=== PATIENT | female | born 1995 | race Caucasian/White ===

== ENCOUNTER 2021-07-11 17:55 | Emergency (ER) | payer MEDICAID ==
[2021-07-11 18:28] VITALS: BP 107/57; PULSE 70
--- NOTE | 2021-07-11 19:28 | EDM.PDOC ---
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 The symptoms started after coitus. The patient reports that she was changing a pad about every hour. She reports that the bleeding was dark red blood. The bleeding has tapered off some but continues. The patient is -0-0-1 and is 13 weeks by dates. She gets her care from Maria Elena Ontiveros. Her blood type is O+. She does report that today when she was having the bleeding she had some episodes of dizziness, lightheadedness, and diaphoresis associated with some nausea. 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: - Past Surgical History Head Surgeries/Procedures: Reports: None Dermatological Surgical History: Reports: None Social & Family History - Tobacco Use Tobacco Use Status *Q: Never Tobacco User Second Hand Smoke Exposure: No - Caffeine Use Caffeine Use: Reports: None - Recreational Drug Use Recreational Drug Use: No ED ROS GENERAL - Review of Systems Review Of Systems: See Below Constitutional: Reports: No Symptoms HEENT: Reports: No Symptoms Respiratory: Reports: No Symptoms Cardiovascular: Reports: No Symptoms Endocrine: Reports: No Symptoms GI/Abdominal: Reports: Abdominal Pain (Intermittent bilateral lower abdominal pain) : Reports: No Symptoms Musculoskeletal: Reports: No Symptoms Skin: Reports: Diaphoresis Neurological: Reports: Dizziness (Lightheadedness) Psychiatric: Reports: Anxiety Hematologic/Lymphatic: Reports: No Symptoms Immunologic: Reports: No Symptoms ED EXAM - Physical Exam Exam: See Below Exam Limited By: No Limitations General Appearance: Alert, No Apparent Distress, Anxious Respiratory/Chest: No Respiratory Distress, Lungs Clear, Normal Breath Sounds Cardiovascular: Normal Peripheral Pulses, Regular Rate, Rhythm, No Murmur GI/Abdominal Exam: Normal Bowel Sounds, Soft, Non-Tender, Other (Fundus is senior care between the pelvis and the umbilicus) Back Exam: Normal Inspection Extremities: Normal Inspection Neurological: Alert, Oriented, Normal Cognition, No Motor/Sensory Deficits Psychiatric: Normal Affect, Normal Mood Skin Exam: Warm, Dry ED ULTRASOUND - Pelvic Indication: vaginal bleeding Exam type: focused transabdominal pelvic US Findings: IUP Impression: IUP w/heartbeat, other (Posterior placenta with a small subchorionic hemorrhage. It does not appear that the placenta overrides the cervix.) Images archived: Yes Pelvis US Text: Single live intrauterine with a FHR of 156 bpm. BPD 14w3d Course - Vital Signs Last Recorded V/S: Last Vital Signs Temp 36.6 C 07/11/21 18:28 Pulse 70 07/11/21 18:28 Resp 14 07/11/21 18:28 BP 107/57 L 07/11/21 18:28 Pulse Ox 97 07/11/21 18:28 - Orders/Labs/Meds Orders: Active Orders 24 hr Category Date Time Status HCG QUANTITATIVE [CHEM] Stat Lab 07/11/21 19:04 Received Labs: Laboratory Tests 07/11/21 07/11/21 Range/Units 18:53 19:04 WBC 8.4 (4.5-11.0) K/uL RBC 3.92 (3.30-5.50) M/uL Hgb 12.3 (12.0-15.0) g/dL Hct 36.1 (36.0-48.0) % MCV 92 (80-98) fL MCH 31 (27-31) pg MCHC 34 (32-36) % Plt Count 187 (150-400) K/uL Urine Color Red A (YELLOW) Urine Appearance Slightly cloudy A (CLEAR) Urine pH 6.0 (5.0-8.0) Ur Specific [place] 1.015 (1.008-1.030) Urine Protein >=300 H (NEGATIVE) mg/dL Urine Glucose (UA) Negative (NEGATIVE) mg/dL Urine Ketones Negative (NEGATIVE) mg/dL Urine Occult Blood Large H (NEGATIVE) Urine Nitrite Negative (NEGATIVE) Urine Bilirubin Negative (NEGATIVE) Urine Urobilinogen 0.2 (0.2-1.0) EU/dL Ur Leukocyte Esterase Negative (NEGATIVE) Urine RBC 10-20 H (0-5) Urine WBC 0-5 (0-5) Ur Epithelial Cells Few Amorphous Sediment Moderate Urine Bacteria Moderate Urine Mucus Not seen - Re-Assessments/Exams Free Text/Narrative Re-Assessment/Exam: 07/11/21 19:33 labs were reviewed showing a hemoglobin of 12.9. Patient is O+ so she does not require RhoGam. Ultrasound done at the bedside shows a subchorionic hemorrhage and a posterior placenta. It does not appear that the placenta overrides the cervix. heart rate was 156 bpm and biparietal diameter calculates to 14 weeks 3 days which is consistent with her dates. At this time, the patient is reassured. Indications to return to the ED were discussed. Patient should follow-up with OB care provider in 2 days for recheck of her beta-hCG quantitative. Departure - Departure Time of Disposition: 19:34 Disposition: Home, Self-Care 01 Clinical Impression: First-trimester bleeding - Discharge Information Instructions: Vaginal Bleeding During , First Trimester Referrals: Maria Elena Ontiveros CNM [Primary Care Provider] - Care Plan Goals: Follow-up with James Ontiveros in 2 days for recheck your beta-hCG quantitative. Return to the ED if you have more significant bleeding, increased pain, develop fever, or have any additional concerns. Sepsis Event Note (ED) - Evaluation Sepsis Screening Result: No Definite Risk - Focused Exam Vital Signs: Vital Signs Temp Pulse Resp BP Pulse Ox 07/11/21 18:28 36.6 C 70 14 107/57 L 97 07/11/21 18:26 36.6 C 70 14 107/57 L 97 - Problem List & Annotations (1) First-trimester bleeding SNOMED Code(s): 0228215931507596 Code(s): O20.9 - HEMORRHAGE IN EARLY , UNSPECIFIED Status: Acute Priority: Medium Current Visit: Yes - Problem List Review Problem List Initiated/Reviewed/Updated: Yes - My Orders Last 24 Hours: My Active Orders 07/11/21 19:04 HCG QUANTITATIVE [CHEM] Stat - Assessment/Plan Last 24 Hours: My Active Orders 07/11/21 19:04 HCG QUANTITATIVE [CHEM] Stat
== END 2021-07-11 19:41 | disposition home or self-care (01) ==
LOC: JP.ED 17:55
DX: O20.9 Hemorrhage in early pregnancy, unspecified (principal); Z3A.13 13 weeks gestation of pregnancy
CPT/HCPCS: 36415; 81001; 84702; 85027; 99284-25

== ENCOUNTER 2021-08-17 12:05 | Emergency (ER) | payer MEDICAID ==
--- NOTE | 2021-08-17 12:32 | EDM.PDOC ---
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 She is 19 weeks gestation and blood type O+. Was referred to the ER from the [facility]. Hgb on 08/03/21 was 11.5. Had an US in clinic yesterday that showed perigestational hemorrhage, no placenta previa or other pathology. FHT's present yesterday at 163/min. This is her 2nd . Onset: Today Onset Date: 08/17/21 Duration: Hour(s):, Constant Location: Reports: Pelvis (uterine) Quality: Reports: Other (no cramping reported) Severity: Moderate Improves with: Reports: None Worsens with: Reports: Other (unsure) Context: Reports: Other (See HPI) Associated Symptoms: Reports: Other (occasionally light-headed with standing). 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 Denies: Nausea : Reports: Other (vaginal bleeding) Musculoskeletal: Reports: No Symptoms Skin: Reports: No Symptoms ED EXAM - Physical Exam Exam: See Below Exam Limited By: No Limitations General Appearance: Alert, WD/WN, No Apparent Distress Eye Exam: Right Eye: Other, Bilateral Eye: Normal Inspection Ears: Normal External Exam, Normal Canal, Hearing Grossly Normal Nose: Normal Inspection, No Blood Throat/Mouth: Normal Inspection, Normal Lips, Normal Oropharynx, Normal Voice, No Airway Compromise Head: Atraumatic, Normocephalic Neck: Normal Inspection Respiratory/Chest: No Respiratory Distress, Lungs Clear, Normal Breath Sounds, No Accessory Muscle Use Cardiovascular: Regular Rate, Rhythm, No Edema Heart Tones: Present Heart Tones per Min: 156 Movement: Not Appreciated Extremities: Normal Inspection Neurological: Alert, Oriented, CN II-XII Intact, Normal Cognition, No Motor/Sensory Deficits Psychiatric: Normal Affect, Normal Mood Skin Exam: Warm, Dry, Intact, Normal Color, No Rash Course - Vital Signs Text/Narrative:: Discussed with Raquel Muñoz @ 1420h Last Recorded V/S: Last Vital Signs Temp 36.7 C 08/17/21 12:22 Pulse 76 08/17/21 12:22 Resp 16 08/17/21 12:22 BP 104/53 L 08/17/21 12:22 Pulse Ox 100 08/17/21 12:22 Orthostatic Blood Pressure [ 96/56 Standing] Orthostatic Blood Pressure [ 98/55 Sitting] Orthostatic Blood Pressure [ 109/58 Supine] - Orders/Labs/Meds Orders: Active Orders 24 hr Category Date Time Status Orthostatic Vital Signs [RC] ASDIRECTED Care 08/17/21 12:10 Active Labs: Laboratory Tests 08/17/21 Range/Units 12:46 Hgb 10.0 L D (12.0-15.0) g/dL Meds: Medications Discontinued Medications Generic Name Dose Route Start Last Admin Trade Name Gallitoq PRN Reason Stop Dose Admin Lactated Ringer's 1,000 mls @ 1,000 mls/hr 08/17/21 12:48 08/17/21 13:18 Ringers, Lactated IV 08/17/21 13:47 1,000 mls/hr BOLUS ONE Administration - Radiology Interpretation Free Text/Narrative:: OB ultrasound- Departure - Departure Time of Disposition: 15:00 Disposition: Home, Self-Care 01 Condition: Fair Clinical Impression: Vaginal bleeding during - Discharge Information *PRESCRIPTION DRUG MONITORING PROGRAM REVIEWED*: Not Applicable *COPY OF PRESCRIPTION DRUG MONITORING REPORT IN PATIENT RONEL: Not Applicable Referrals: Hannah Hicks MD [Primary Care Provider] - Forms: ED Department Discharge Sepsis Event Note (ED) - Focused Exam Vital Signs: Vital Signs Temp Pulse Resp BP Pulse Ox 08/17/21 12:22 36.7 C 76 16 104/53 L 100 - My Orders Last 24 Hours: My Active Orders 08/17/21 12:10 Orthostatic Vital Signs [RC] ASDIRECTED - Assessment/Plan Last 24 Hours: My Active Orders 08/17/21 12:10 Orthostatic Vital Signs [RC] ASDIRECTED
[2021-08-17] MEDS ORDERED: Lactated Ringers 1,000 ML IV ONE ×2 (12:48→14:46)
--- NOTE | 2021-08-17 14:21 | US ---
OB Ltd 1 or More Fetus CLINICAL HISTORY: Late first trimester bleeding FINDINGS: Real-time transabdominal images are obtained through the pelvis. There is a single viable intrauterine in cephalic position. heart rate is 146 bpm. Amniotic fluid index is 9.3. The placenta is anterior. Previously seen perigestational is again seen. The more right-sided fluid collection near the anterior margin of the placenta measures 5.7 x 3.2 x 4.1 cm. The more posterior left collection measures 3.1 x 0.8 x 2.7 cm. Cervical length is 3.4 cm. IMPRESSION: Live intrauterine .Perigestational bleed has increased in size since prior study
--- NOTE | 2021-08-17 14:56 | PCM.PN ---
- General Info Date of Service: 08/17/21 Functional Status: Reports: Pain Controlled - Review of Systems General: Reports: No Symptoms HEENT: Reports: No Symptoms Pulmonary: Reports: No Symptoms Cardiovascular: Reports: No Symptoms Gastrointestinal: Reports: No Symptoms Genitourinary: Reports: Other (vaginal bleeding in -second trimester) Musculoskeletal: Reports: No Symptoms Skin: Reports: No Symptoms Neurological: Reports: No Symptoms Psychiatric: Reports: No Symptoms - Patient Data Vitals - Most Recent: Last Vital Signs Temp 36.7 C 08/17/21 12:22 Pulse 76 08/17/21 12:22 Resp 16 08/17/21 12:22 BP 104/53 L 08/17/21 12:22 Pulse Ox 100 08/17/21 12:22 Orthostatic Blood Pressure [ 96/56 Standing] Orthostatic Blood Pressure [ 98/55 Sitting] Orthostatic Blood Pressure [ 109/58 Supine] Weight - Most Recent: 62.9 kg Lab Results Last 24 Hours: Laboratory Results - last 24 hr 08/17/21 Range/Units 12:46 Hgb 10.0 L D (12.0-15.0) g/dL Med Orders - Current: Current Medications Lactated Ringer's (Ringers, Lactated) 1,000 mls @ 1,000 mls/hr IV BOLUS ONE Stop: 08/17/21 15:45 Discontinued Medications Lactated Ringer's (Ringers, Lactated) 1,000 mls @ 1,000 mls/hr IV BOLUS ONE Stop: 08/17/21 13:47 Last Admin: 08/17/21 13:18 Dose: 1,000 mls/hr Documented by: - Patient Data Lab Results Last 24 hrs: Laboratory Results - last 24 hr 08/17/21 Range/Units 12:46 Hgb 10.0 L D (12.0-15.0) g/dL Result Diagrams: 08/17/21 12:46 Sepsis Event Note - Focused Exam Vital Signs: Vital Signs Temp Pulse Resp BP Pulse Ox 08/17/21 12:22 36.7 C 76 16 104/53 L 100 - Problem List & Annotations (1) Vaginal bleeding during SNOMED Code(s): 15122502526971339 Code(s): O46.90 - ANTEPARTUM HEMORRHAGE, UNSPECIFIED, UNSPECIFIED TRIMESTER Status: Acute Current Visit: Yes - Problem List Review Problem List Initiated/Reviewed/Updated: Yes - Plan Plan:: 08/17/2021 Was called as a consult on an OB patient. Gestational age of 19 0/7 has been being followed by [facility] in [place] for a large perigestational hemorrhage. Patient has been having heavier bleeding, clots and is now becoming symptomatic with dizziness at time. Did consult with Dr. Rivero whom was over at [facility] since her hgb dropped from 11.5 yesterday and to 10.0 today. He consulted with project control manager [employer] Dr. Stack and they decided she should come by ambulance and be a direct admit to labor and delivery over in [place]. Dr. Mendez notified and patient will be transferred. GIRMA Garcia
[2021-08-17 15:03] VITALS: BP 110/62; PULSE 72
== END 2021-08-17 15:28 | disposition home or self-care (01) ==
LOC: JP.ED 12:05
DX: O20.9 Hemorrhage in early pregnancy, unspecified (principal); Z3A.19 19 weeks gestation of pregnancy; Z20.822 Contact with and (suspected) exposure to COVID-19
CPT/HCPCS: 36415; 76815; 85018; 87635; 99285; J7120; U0002

== ENCOUNTER 2021-09-01 18:49 | Inpatient (IN) | payer MEDICAID ==
[2021-09-01] MEDS ORDERED: Sodium Chloride 0.9% 10 ML Syringe FLUSH PRN (19:11)
[2021-09-01] MEDS ORDERED: Lactated Ringers 1,000 ML IV ONE (19:30)
[2021-09-01] MEDS ORDERED: Tranexamic Acid 1,000 MG in Sodium Chloride 0.9% 50 ML IV ONE (19:43)
--- NOTE | 2021-09-01 21:03 | PCM.LDHP ---
L&D History of Present Illness - General Date of Service: 09/01/21 Admit Problem/Dx: Patient Status Order with Admit Dx/Problem 09/01/21 20:20 Patient Status [ADT] Routine Admission Diagnosis/Problem Admission Diagnosis/Problem Vaginal delivery Source of Information: Patient History Limitations: Reports: No Limitations - History of Present Illness Introduction:: 09/01/21 Patient came to ER entrance this evening with complaints of bad cramping. Upon arrival at 1915 she began bleeding a large amount of bright red blood and her pain and cramping intensified. She has had vaginal bleeding since 14 weeks gestation, light. An ultrasound was done at 14 and she was found to have a large subchorionic hematoma and was transferred to OBGYN care for high risk at that time. The hematoma's recently have been increasing in size and she was having frequent appointments with OBGYN. See L & D note for further. Mckenna is a on admission, 21 1/7 weeks with known large subchorionic hemorrhage. O positive blood type, rubella immune, RPR/HIV/hep B/C all NR. First was normal, full term, . Toxicology positive for THC in first trimester. Reports THC use in but had quit smoking cigarettes. No alcohol or other drug use. Home medications include a vitamin. Timing/Duration: Reports: sudden onset Location, : Reports: Pelvic Quality: Reports: Sharp Severity: Severe Improves with: Reports: None Worsens with: Reports: None Associated Symptoms: Reports: vaginal bleeding, vaginal clots - Related Data Allergies/Adverse Reactions: Allergies Allergy/AdvReac Type Severity Reaction Status Date / Time No Known Allergies Allergy Verified 09/01/21 19:09 Home Medications: Home Meds Pnv95/Iron Fum/Folic Acid [ Caplet] 1 tab PO DAILY 12/10/16 [History] Ferrous Sulfate [Iron] 325 mg PO DAILY 09/01/21 [History] Past Medical History - Past Health History Medical/Surgical History: Denies 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 Para: 1 LMP (Approximate): Other OB/BYN History: - Infectious Disease History Infectious Disease History: Reports: None - Past Surgical History Head Surgeries/Procedures: Reports: None Dermatological Surgical History: Reports: None Social & Family History - Tobacco Use Tobacco Use Status *Q: Former Tobacco User Tobacco Use Within Last Twelve Months: Cigarettes Second Hand Smoke Exposure: No - Caffeine Use Caffeine Use: Reports: None - Alcohol Use Alcohol Use History: No - Recreational Drug Use Recreational Drug Use: Yes Drug Use in Last 12 Months: Yes Recreational Drug Type: Reports: Marijuana/Hashish Recreational Drug Use Frequency: Socially Recreational Drug Route: Reports: Inhaled H&P Review of Systems - Review of Systems: Review Of Systems: See Below General: Reports: No Symptoms HEENT: Reports: No Symptoms Pulmonary: Reports: No Symptoms Cardiovascular: Reports: No Symptoms Gastrointestinal: Reports: Abdominal Pain Genitourinary: Reports: Pain, Hematuria Musculoskeletal: Reports: No Symptoms Skin: Reports: No Symptoms Psychiatric: Reports: No Symptoms Neurological: Reports: No Symptoms Hematologic/Lymphatic: Reports: Anemia Immunologic: Reports: No Symptoms L&D Exam - Exam Exam: See Below - Vital Signs Weight: 62.596 kg - OB Specific Contraction Intensity: Moderate to Strong Movement: Not Appreciated Heart Tones: Not [place] - Exam General: Alert, Oriented HEENT: PERRLA, Mucosa Moist & [place], Pupils Equal, Pupils Reactive Neck: Supple, Trachea Midline Lungs: Clear to Auscultation, Normal Respiratory Effort Cardiovascular: Regular Rate, Regular Rhythm GI/Abdominal Exam: Normal Bowel Sounds, Pelvis Stable Rectal Exam: Normal Rectal Tone Genitourinary: Cervical dilitation, Enlarged uterus Back Exam: Normal Inspection, Full Range of Motion Extremities: Normal Inspection, Normal Range of Motion, Non-Tender, No Pedal Edema Skin: Warm, Dry, Intact Neurological: Cranial Nerves Intact, Reflexes Equal Bilateral Psychiatric: Alert, Normal Affect, Normal Mood - Patient Data Lab Results Last 24 hrs: Laboratory Results - last 24 hr 09/01/21 09/01/21 09/01/21 Range/Units 19:09 19:30 19:34 WBC 14.1 H (4.5-11.0) K/uL RBC 3.06 L (3.30-5.50) M/uL Hgb 10.1 L (12.0-15.0) g/dL Hct 29.7 L (36.0-48.0) % MCV 97 (80-98) fL MCH 33 H (27-31) pg MCHC 34 (32-36) % Plt Count 253 (150-400) K/uL Neut % (Auto) 77.8 H (36-66) % Lymph % (Auto) 14.5 L (24-44) % [place] % (Auto) 6.8 H (2-6) % Eos % (Auto) 0.8 L (2-4) % Baso % (Auto) 0.1 (0-1) % Urine Color Red A (YELLOW) Urine Appearance Cloudy A (CLEAR) Urine pH 8.5 H (5.0-8.0) Ur Specific [place] 1.020 (1.008-1.030) Urine Protein >=300 H (NEGATIVE) mg/dL Urine Glucose (UA) 100 H (NEGATIVE) mg/dL Urine Ketones 15 H (NEGATIVE) mg/dL Urine Occult Blood Large H (NEGATIVE) Urine Nitrite Negative (NEGATIVE) Urine Bilirubin Large H (NEGATIVE) Urine Urobilinogen 4.0 H (0.2-1.0) EU/dL Ur Leukocyte Esterase Large H (NEGATIVE) Urine RBC Packed H (0-5) Urine WBC 20-30 H (0-5) Ur Epithelial Cells Few Amorphous Sediment Not seen Urine Bacteria Many Urine Mucus Not seen Urine Other Blood Type O POSITIVE Gel Antibody Screen Negative Crossmatch See Detail Result Diagrams: 09/01/21 19:34 - Problem List (1) with 21 completed weeks gestation SNOMED Code(s): 77487334 ICD Code: Z3A.21 - 21 WEEKS GESTATION OF Status: Acute Current Visit: Yes (2) Placental abruption in second trimester SNOMED Code(s): 425371655 ICD Code: O45.92 - PREMATURE SEPARATION OF PLACENTA, UNSP, SECOND TRIMESTER Status: Acute Current Visit: Yes (3) Normal stillborn SNOMED Code(s): 878724478 ICD Code: P95 - STILLBIRTH Status: Acute Current Visit: Yes (4) Vaginal bleeding during SNOMED Code(s): 10139659224471520 ICD Code: O46.90 - ANTEPARTUM HEMORRHAGE, UNSPECIFIED, UNSPECIFIED TRIMESTER Status: Acute Current Visit: Yes Problem List Initiated/Reviewed/Updated: Yes Orders Last 24hrs: Active Orders 24 hr Category Date Time Status Patient Status [ADT] Routine ADT 09/01/21 20:20 Active May Shower [RC] ASDIRECTED Care 09/01/21 20:20 Active Peripheral IV Care [RC] . DIRECTED Care 09/01/21 19:11 Active Up ad Nathalia [RC] ASDIRECTED Care 09/01/21 20:20 Active VTE/DVT Education [RC] Click to Edit Care 09/01/21 20:22 Active Vital Signs [RC] PFP Care 09/01/21 20:20 Active Regular Diet [DIET] Diet 09/01/21 Dinner Active CBC WITH AUTO DIFF [HEME] Timed Lab 09/02/21 00:01 Ordered CORONAVIRUS COVID-19 RAPID [MOLEC] Routine Lab 09/01/21 19:45 Ordered DRUG SCREEN, URINE [URCHEM] Routine Lab 09/01/21 20:23 Ordered PATIENT RETYPE [BBK] Routine Lab 09/01/21 19:30 Results RED BLOOD CELLS LP [BBK] Routine Lab 09/01/21 19:30 Results TYPE AND SCREEN [BBK] Routine Lab 09/01/21 19:30 Results Ferrous Sulfate Med 09/02/21 08:00 Active 325 mg PO WITHBREAKFAST Sodium Chloride 0.9% [Saline Flush] Med 09/01/21 19:11 Active 10 ml FLUSH ASDIRECTED PRN Assess Lochia [WOMSER] Per Unit Routine Oth 09/01/21 20:20 Ordered DVT/VTE Prophylaxis Reflex [OM.PC] Routine Oth 09/01/21 20:20 Ordered Peripheral IV Insertion Adult [OM.PC] Routine Oth 09/01/21 19:11 Ordered Resuscitation Status Routine Resus Stat 09/01/21 20:20 Ordered Medication Orders Ferrous Sulfate (Ferrous Sulfate 325 Mg Tab) 325 mg PO WITHBREAKFAST UNA Sodium Chloride (Sodium Chloride 0.9% 10 Ml Syringe) 10 ml FLUSH ASDIRECTED PRN PRN Reason: Keep Vein Open Assessment/Plan Comment:: 09/01/21 Assessment: Patient here with bright red vaginal bleeding, moderate amount Abdominal/pelvic pain and cramping, palpating contractions Unable to find heart tones on Doppler, US called upon my arrival O positive blood type 21 1/7 weeks with known large subchorionic hematoma Hgb 10.1 Plan: [place] called to consult OBGYN Patient delivered stillborn shortly after arrival See L & D note for further detail
--- NOTE | 2021-09-01 21:33 | PCM.DEL ---
L & D Note - General Info Date of Service: 09/01/21 Mother's Due Date: 01/11/22 - Delivery Note Labor: Spontaneous Delivery Outcome: Stillbirth Infant Delivery Method: Spontaneous Vaginal Delivery-Single Delivery Mode: Spontaneous Presentation: Transverse Nuchal Cord: None Anesthesia Type: None Amniotic Fluid Description: brown Episiotomy Type: None Laceration: None Placenta: Intact, Spontaneous Cord: 3 Vessels Estimated Blood Loss: 890 (weighed pads) Delivery Comments (Free Text/Narrative):: 09/01/21 Mother came into L & D with heavy uterine cramping and bleeding this evening. She is 21 1/7 weeks with a known large subchorionic hematoma. Last US 08/17/21 showed 2 hematomas one up to 9 cm and the other 5-6 cm, cervix was 2.5 cm. I was called as soon as patient arrived to OB floor. Upon entering the room she had bright red blood on chux but appears stable, EBL on first chux 50-100 ml. Uterus noreen very firm. 2 IV's started and fluid bolus started. CBC and type and crossmatch were done. Unable to doptone FHT's for sure, ultrasound called but did not make it before delivery. Mother reports movement late afternoon/into the evening but has not noticed since cramping started. Her cramping started at 5 pm but suddenly worsened at 7 pm. I did call [facility] and consulted with Moustapha Michel who recommended cervical exam. SVE 6- 7/bulging bag, large clots. Mother and father understand that baby is pre- viable. Several minutes after vaginal exam there was SROM of brown amniotic fluid, large amount, no blood in amniotic fluid. I was concerned of the amount of bleeding but patient immanently delivered and then bleeding stopped right away. She felt the urge to push something out right after her water broke. SVE was done and baby was in the vagina in transverse position. She easily pushed baby out with 1-2 pushes. Baby boy was stillborn, riana color, bruising on head and extremities but all skin intact. Placenta delivered at the same time as baby so it seemed it was already entirely. It appears intact and has a 3 vessel cord. The placenta looks quite healthy. There was no nuchal cord or knots. Quantitative blood loss 890 ml. Vagina/perineum intact. Stillbirth at 1948. Baby weighed 13 oz. - General Info Date of Service: 09/01/21 Functional Status: Reports: Pain Controlled - Review of Systems General: Reports: No Symptoms HEENT: Reports: No Symptoms Pulmonary: Reports: No Symptoms Cardiovascular: Reports: No Symptoms Gastrointestinal: Reports: No Symptoms Genitourinary: Reports: Other (uterine cramping) Musculoskeletal: Reports: No Symptoms Skin: Reports: No Symptoms Neurological: Reports: No Symptoms Psychiatric: Reports: No Symptoms - Patient Data Vitals - Most Recent: Last Vital Signs Temp Pulse 65 09/01/21 19:20 Resp 18 09/01/21 19:20 BP 114/54 L 09/01/21 19:20 Pulse Ox 93 L 09/01/21 19:20 Weight - Most Recent: 62.596 kg Lab Results Last 24 Hours: Laboratory Results - last 24 hr 09/01/21 09/01/21 09/01/21 Range/Units 19:09 19:30 19:34 WBC 14.1 H (4.5-11.0) K/uL RBC 3.06 L (3.30-5.50) M/uL Hgb 10.1 L (12.0-15.0) g/dL Hct 29.7 L (36.0-48.0) % MCV 97 (80-98) fL MCH 33 H (27-31) pg MCHC 34 (32-36) % Plt Count 253 (150-400) K/uL Neut % (Auto) 77.8 H (36-66) % Lymph % (Auto) 14.5 L (24-44) % [place] % (Auto) 6.8 H (2-6) % Eos % (Auto) 0.8 L (2-4) % Baso % (Auto) 0.1 (0-1) % Urine Color Red A (YELLOW) Urine Appearance Cloudy A (CLEAR) Urine pH 8.5 H (5.0-8.0) Ur Specific [place] 1.020 (1.008-1.030) Urine Protein >=300 H (NEGATIVE) mg/dL Urine Glucose (UA) 100 H (NEGATIVE) mg/dL Urine Ketones 15 H (NEGATIVE) mg/dL Urine Occult Blood Large H (NEGATIVE) Urine Nitrite Negative (NEGATIVE) Urine Bilirubin Large H (NEGATIVE) Urine Urobilinogen 4.0 H (0.2-1.0) EU/dL Ur Leukocyte Esterase Large H (NEGATIVE) Urine RBC Packed H (0-5) Urine WBC 20-30 H (0-5) Ur Epithelial Cells Few Amorphous Sediment Not seen Urine Bacteria Many Urine Mucus Not seen Urine Other Blood Type O POSITIVE Gel Antibody Screen Negative Crossmatch See Detail Med Orders - Current: Current Medications Ferrous Sulfate (Ferrous Sulfate 325 Mg Tab) 325 mg PO WITHBREAKFAST UNA Sodium Chloride (Sodium Chloride 0.9% 10 Ml Syringe) 10 ml FLUSH ASDIRECTED PRN PRN Reason: Keep Vein Open Discontinued Medications Tranexamic Acid 1,000 mg/ (Sodium Chloride) 60 mls @ 200 mls/hr IV ONETIME ONE Stop: 09/01/21 20:00 Lactated Ringer's (Ringers, Lactated) 1,000 mls @ 999 mls/hr IV BOLUS ONE Stop: 09/01/21 20:30 Oxytocin/Sodium Chloride (Pitocin In Ns 20 Units/1,000 Ml) Confirm Administered Dose 20 unit in 1,000 mls @ as directed .ROUTE .STK-MED ONE Stop: 09/01/21 19:55 - Exam General: Alert, Oriented HEENT: Pupils Equal, Pupils Reactive Neck: Supple Lungs: Clear to Auscultation, Normal Respiratory Effort Cardiovascular: Regular Rate, Regular Rhythm GI/Abdominal Exam: Normal Bowel Sounds, Soft, Pelvis Stable (Female) Exam: Normal External Exam, Cervical Dilatation, Enlarged Uterus, Vaginal Bleeding. No: Vaginal Tears Back Exam: Normal Inspection, Full Range of Motion Extremities: Normal Inspection, No Pedal Edema Skin: Warm, Dry, Intact Neurological: No New Focal Deficit Psy/Mental Status: Alert, Other (tearful) - Problem List & Annotations (1) with 21 completed weeks gestation SNOMED Code(s): 92153611 Code(s): Z3A.21 - 21 WEEKS GESTATION OF Status: Acute Current Visit: Yes (2) Placental abruption in second trimester SNOMED Code(s): 875169623 Code(s): O45.92 - PREMATURE SEPARATION OF PLACENTA, UNSP, SECOND TRIMESTER Status: Acute Current Visit: Yes (3) Normal stillborn SNOMED Code(s): 022950716 Code(s): P95 - STILLBIRTH Status: Acute Current Visit: Yes (4) Vaginal bleeding during SNOMED Code(s): 81537032903707488 Code(s): O46.90 - ANTEPARTUM HEMORRHAGE, UNSPECIFIED, UNSPECIFIED TRIMESTER Status: Acute Current Visit: Yes - Problem List Review Problem List Initiated/Reviewed/Updated: Yes - My Orders Last 24 Hours: My Active Orders 09/01/21 Dinner Regular Diet [DIET] 09/01/21 19:11 Peripheral IV Care [RC] . DIRECTED Sodium Chloride 0.9% [Saline Flush] 10 ml FLUSH ASDIRECTED PRN Peripheral IV Insertion Adult [OM.PC] Routine 09/01/21 19:30 PATIENT RETYPE [BBK] Routine RED BLOOD CELLS LP [BBK] Routine TYPE AND SCREEN [BBK] Routine 09/01/21 19:45 CORONAVIRUS COVID-19 RAPID [MOLEC] Routine 09/01/21 20:20 Patient Status [ADT] Routine May Shower [RC] ASDIRECTED Up ad Nathalia [RC] ASDIRECTED Vital Signs [RC] PFP Assess Lochia [WOMSER] Per Unit Routine DVT/VTE Prophylaxis Reflex [OM.PC] Routine Resuscitation Status Routine 09/01/21 20:22 VTE/DVT Education [RC] Click to Edit 09/01/21 20:23 DRUG SCREEN, URINE [URCHEM] Routine 09/01/21 21:20 CBC W/O DIFF,HEMOGRAM [HEME] Urgent 09/02/21 00:01 CBC WITH AUTO DIFF [HEME] Timed (Cancelled) 09/02/21 08:00 Ferrous Sulfate 325 mg PO WITHBREAKFAST - Assessment Assessment:: 09/01/21 delivered stillborn male at 21 1/7 weeks following placental abruption Quantitative blood loss 890 ml AVSS, patient not feeling dizzy Grieving the loss of her baby, held him for about 2 hours and had pictures done THC reported, quit smoking cigarettes beginning of , no alcohol or other drug use O positive blood type Hgb on arrival 10.1, post delivery 2 hours 8.8 Bleeding now scant after delivery AVSS - Plan Plan:: 09/01/21 Assessment: Patient here with bright red vaginal bleeding, moderate amount Abdominal/pelvic pain and cramping, palpating contractions Unable to find heart tones on Doppler, US called upon my arrival O positive blood type 21 1/7 weeks with known large subchorionic hematoma Hgb 10.1 Plan: Dion called to consult OBGYN Patient delivered stillborn shortly after arrival See L & D note for further detail 09/01/21 Recheck hemoglobin in the early am Monitor closely for symptoms of anemia Following policy for stillborn after 20 weeks Mother and father decline any genetic testing or autopsy Decline jain Placenta to pathology
[2021-09-01] MEDS ORDERED: Ibuprofen 600 MG Tab PO PRN (22:14)
[2021-09-01] MEDS ORDERED: Zolpidem 5 MG Tab PO PRN (22:21)
--- NOTE | 2021-09-02 07:26 | PCM.PNPP ---
- General Info Date of Service: 09/02/21 Functional Status: Reports: Pain Controlled - Review of Systems General: Reports: Fatigue. Denies: Weakness HEENT: Reports: No Symptoms. Denies: Headaches Pulmonary: Reports: No Symptoms Cardiovascular: Reports: No Symptoms. Denies: Chest Pain, Lightheadedness Gastrointestinal: Reports: No Symptoms Genitourinary: Reports: No Symptoms Musculoskeletal: Reports: No Symptoms Skin: Reports: No Symptoms Neurological: Reports: No Symptoms Psychiatric: Reports: No Symptoms, Other (tearful) - General Info Date of Service: 09/02/21 - Patient Data Vital Signs - Most Recent: Last Vital Signs Temp 36.1 C 09/02/21 04:37 Pulse 67 09/02/21 04:37 Resp 18 09/02/21 04:37 BP 177/56 H 09/02/21 04:37 Pulse Ox 97 09/02/21 04:37 Weight - Most Recent: 58.967 kg Lab Results - Last 24 Hours: Laboratory Results - last 24 hr 09/01/21 09/01/21 09/01/21 Range/Units 19:09 19:30 19:34 WBC 14.1 H (4.5-11.0) K/uL RBC 3.06 L (3.30-5.50) M/uL Hgb 10.1 L (12.0-15.0) g/dL Hct 29.7 L (36.0-48.0) % MCV 97 (80-98) fL MCH 33 H (27-31) pg MCHC 34 (32-36) % Plt Count 253 (150-400) K/uL Neut % (Auto) 77.8 H (36-66) % Lymph % (Auto) 14.5 L (24-44) % [place] % (Auto) 6.8 H (2-6) % Eos % (Auto) 0.8 L (2-4) % Baso % (Auto) 0.1 (0-1) % Urine Color Red A (YELLOW) Urine Appearance Cloudy A (CLEAR) Urine pH 8.5 H (5.0-8.0) Ur Specific [facility] 1.020 (1.008-1.030) Urine Protein >=300 H (NEGATIVE) mg/dL Urine Glucose (UA) 100 H (NEGATIVE) mg/dL Urine Ketones 15 H (NEGATIVE) mg/dL Urine Occult Blood Large H (NEGATIVE) Urine Nitrite Negative (NEGATIVE) Urine Bilirubin Large H (NEGATIVE) Urine Urobilinogen 4.0 H (0.2-1.0) EU/dL Ur Leukocyte Esterase Large H (NEGATIVE) Urine RBC Packed H (0-5) Urine WBC 20-30 H (0-5) Ur Epithelial Cells Few Amorphous Sediment Not seen Urine Bacteria Many Urine Mucus Not seen Urine Other Urine Opiates Screen (NEGATIVE) Ur Oxycodone Screen (NEGATIVE) Urine Methadone Screen (NEGATIVE) Ur Propoxyphene Screen (NEGATIVE) Ur Barbiturates Screen (NEGATIVE) Ur Tricyclics Screen (NEGATIVE) Ur Phencyclidine Scrn (NEGATIVE) Ur Amphetamine Screen (NEGATIVE) U Methamphetamines Scrn (NEGATIVE) Urine MDMA Screen (NEGATIVE) U Benzodiazepines Scrn (NEGATIVE) U Cocaine Metab Screen (NEGATIVE) U Marijuana (THC) Screen (NEGATIVE) SARS CoV-2 RNA Rapid [place] Blood Type O POSITIVE Gel Antibody Screen Negative Crossmatch See Detail 09/01/21 09/01/21 09/01/21 Range/Units 19:45 20:23 21:20 WBC 17.7 H (4.5-11.0) K/uL RBC 2.78 L (3.30-5.50) M/uL Hgb 8.8 L (12.0-15.0) g/dL Hct 26.8 L (36.0-48.0) % MCV 96 (80-98) fL MCH 32 H (27-31) pg MCHC 33 (32-36) % Plt Count 214 (150-400) K/uL Neut % (Auto) (36-66) % Lymph % (Auto) (24-44) % [place] % (Auto) (2-6) % Eos % (Auto) (2-4) % Baso % (Auto) (0-1) % Urine Color (YELLOW) Urine Appearance (CLEAR) Urine pH (5.0-8.0) Ur Specific [facility] (1.008-1.030) Urine Protein (NEGATIVE) mg/dL Urine Glucose (UA) (NEGATIVE) mg/dL Urine Ketones (NEGATIVE) mg/dL Urine Occult Blood (NEGATIVE) Urine Nitrite (NEGATIVE) Urine Bilirubin (NEGATIVE) Urine Urobilinogen (0.2-1.0) EU/dL Ur Leukocyte Esterase (NEGATIVE) Urine RBC (0-5) Urine WBC (0-5) Ur Epithelial Cells Amorphous Sediment Urine Bacteria Urine Mucus Urine Other Urine Opiates Screen Negative (NEGATIVE) Ur Oxycodone Screen Negative (NEGATIVE) Urine Methadone Screen Negative (NEGATIVE) Ur Propoxyphene Screen Negative (NEGATIVE) Ur Barbiturates Screen Negative (NEGATIVE) Ur Tricyclics Screen Negative (NEGATIVE) Ur Phencyclidine Scrn Negative (NEGATIVE) Ur Amphetamine Screen Negative (NEGATIVE) U Methamphetamines Scrn Negative (NEGATIVE) Urine MDMA Screen Negative (NEGATIVE) U Benzodiazepines Scrn Negative (NEGATIVE) U Cocaine Metab Screen Negative (NEGATIVE) U Marijuana (THC) Screen Presumptive positive H (NEGATIVE) SARS CoV-2 RNA Rapid [place] Negative Blood Type Gel Antibody Screen Crossmatch 09/02/21 Range/Units 05:59 WBC 13.6 H (4.5-11.0) K/uL RBC 2.76 L (3.30-5.50) M/uL Hgb 8.8 L (12.0-15.0) g/dL Hct 26.5 L (36.0-48.0) % MCV 96 (80-98) fL MCH 32 H (27-31) pg MCHC 33 (32-36) % Plt Count 213 (150-400) K/uL Neut % (Auto) (36-66) % Lymph % (Auto) (24-44) % [place] % (Auto) (2-6) % Eos % (Auto) (2-4) % Baso % (Auto) (0-1) % Urine Color (YELLOW) Urine Appearance (CLEAR) Urine pH (5.0-8.0) Ur Specific [facility] (1.008-1.030) Urine Protein (NEGATIVE) mg/dL Urine Glucose (UA) (NEGATIVE) mg/dL Urine Ketones (NEGATIVE) mg/dL Urine Occult Blood (NEGATIVE) Urine Nitrite (NEGATIVE) Urine Bilirubin (NEGATIVE) Urine Urobilinogen (0.2-1.0) EU/dL Ur Leukocyte Esterase (NEGATIVE) Urine RBC (0-5) Urine WBC (0-5) Ur Epithelial Cells Amorphous Sediment Urine Bacteria Urine Mucus Urine Other Urine Opiates Screen (NEGATIVE) Ur Oxycodone Screen (NEGATIVE) Urine Methadone Screen (NEGATIVE) Ur Propoxyphene Screen (NEGATIVE) Ur Barbiturates Screen (NEGATIVE) Ur Tricyclics Screen (NEGATIVE) Ur Phencyclidine Scrn (NEGATIVE) Ur Amphetamine Screen (NEGATIVE) U Methamphetamines Scrn (NEGATIVE) Urine MDMA Screen (NEGATIVE) U Benzodiazepines Scrn (NEGATIVE) U Cocaine Metab Screen (NEGATIVE) U Marijuana (THC) Screen (NEGATIVE) SARS CoV-2 RNA Rapid [place] Blood Type Gel Antibody Screen Crossmatch Med Orders - Current: Current Medications Ferrous Sulfate (Ferrous Sulfate 325 Mg Tab) 325 mg PO WITHBREAKFAST UNA Ibuprofen (Ibuprofen 600 Mg Tab) 600 mg PO Q6H PRN PRN Reason: Pain Sodium Chloride (Sodium Chloride 0.9% 10 Ml Syringe) 10 ml FLUSH ASDIRECTED PRN PRN Reason: Keep Vein Open Zolpidem Tartrate (Zolpidem 5 Mg Tab) 5 mg PO BEDTIME PRN PRN Reason: Sleep Discontinued Medications Tranexamic Acid 1,000 mg/ (Sodium Chloride) 60 mls @ 200 mls/hr IV ONETIME ONE Stop: 09/01/21 20:00 Last Admin: 09/01/21 21:54 Dose: Not Given Documented by: Lactated Ringer's (Ringers, Lactated) 1,000 mls @ 999 mls/hr IV BOLUS ONE Stop: 09/01/21 20:30 Last Admin: 09/01/21 19:30 Dose: 999 mls/hr Documented by: Oxytocin/Sodium Chloride (Pitocin In Ns 20 Units/1,000 Ml) Confirm Administered Dose 20 unit in 1,000 mls @ as directed .ROUTE .STK-MED ONE Stop: 09/01/21 19:55 Last Admin: 09/01/21 19:55 Dose: 125 mls/hr Documented by: - Infant Interaction Infant Disposition, : in lab Interaction: Other (see below) (mother wished for baby to be removed from room last night) Support Person: Significant Other - Recovery Exam Fundal Tone: Firm Fundal Level: 3 Fingerbreadths Below Umbilicus Fundal Placement: Midline Lochia Amount: Scant, Moderate Lochia Color: Rubra/Red Perineum Description: Intact, Minimal Bruising/Swelling Episiotomy/Laceration: None Bladder Status: Voiding Urinary Elimination: Voided - Exam General: Alert, Oriented HEENT: Pupils Equal, Pupils Reactive Neck: Supple, Trachea Midline Lungs: Clear to Auscultation, Normal Respiratory Effort Cardiovascular: Regular Rate, Regular Rhythm GI/Abdominal Exam: Normal Bowel Sounds, Soft, Non-Tender, Pelvis Stable Extremities: Normal Inspection, Non-Tender, No Pedal Edema Skin: Warm, Dry, Intact Neurological: No New Focal Deficit Psy/Mental Status: Alert, Other (normal grieving as expected, tearful) - Problem List & Annotations (1) with 21 completed weeks gestation SNOMED Code(s): 91182609 Code(s): Z3A.21 - 21 WEEKS GESTATION OF Status: Acute Current Visit: Yes (2) Placental abruption in second trimester SNOMED Code(s): 527590930 Code(s): O45.92 - PREMATURE SEPARATION OF PLACENTA, UNSP, SECOND TRIMESTER Status: Acute Current Visit: Yes (3) Normal stillborn SNOMED Code(s): 201022060 Code(s): P95 - STILLBIRTH Status: Acute Current Visit: Yes (4) Vaginal bleeding during SNOMED Code(s): 19313651659796681 Code(s): O46.90 - ANTEPARTUM HEMORRHAGE, UNSPECIFIED, UNSPECIFIED TRIMESTER Status: Acute Current Visit: Yes - Problem List Review Problem List Initiated/Reviewed/Updated: Yes - My Orders Last 24 Hours: My Active Orders 09/01/21 Dinner Regular Diet [DIET] 09/01/21 19:11 Peripheral IV Care [RC] . DIRECTED Sodium Chloride 0.9% [Saline Flush] 10 ml FLUSH ASDIRECTED PRN Peripheral IV Insertion Adult [OM.PC] Routine 09/01/21 19:30 PATIENT RETYPE [BBK] Routine RED BLOOD CELLS LP [BBK] Routine TYPE AND SCREEN [BBK] Routine 09/01/21 20:20 Patient Status [ADT] Routine May Shower [RC] ASDIRECTED Up ad Nathalia [RC] ASDIRECTED Vital Signs [RC] PFP Assess Lochia [WOMSER] Per Unit Routine DVT/VTE Prophylaxis Reflex [OM.PC] Routine Resuscitation Status Routine 09/01/21 20:22 VTE/DVT Education [RC] Click to Edit 09/01/21 22:14 Ibuprofen [Motrin] 600 mg PO Q6H PRN 09/01/21 22:21 Zolpidem [Ambien] 5 mg PO BEDTIME PRN 09/02/21 08:00 Ferrous Sulfate 325 mg PO WITHBREAKFAST - Assessment Assessment:: 10/7/21 delivered stillborn male at 21 1/7 weeks following placental abruption Quantitative blood loss 890 ml AVSS, patient not feeling dizzy Grieving the loss of her baby, held him for about 2 hours and had pictures done THC reported, quit smoking cigarettes beginning of , no alcohol or other drug use O positive blood type Hgb on arrival 10.1, post delivery 2 hours 8.8 Bleeding now scant after delivery AVSS 09/02/21 Patient delivered last evening, bleeding has been scant since that time Hgb unchanged from post delivery, 8.8 and patient declines dizziness AVSS COVID was negative Mother and father together, grieving as expected, declines any recent depression and we discussed PPD and when to call - Plan Plan:: 09/01/21 Assessment: Patient here with bright red vaginal bleeding, moderate amount Abdominal/pelvic pain and cramping, palpating contractions Unable to find heart tones on Doppler, US called upon my arrival O positive blood type 21 1/7 weeks with known large subchorionic hematoma Hgb 10.1 Plan: Dion called to consult OBGYN Patient delivered stillborn shortly after arrival See L & D note for further detail 09/01/21 Recheck hemoglobin in the early am Monitor closely for symptoms of anemia Following policy for stillborn after 20 weeks Mother and father decline any genetic testing or autopsy Decline episcopal Placenta to pathology 09/02/21 Discharge home today Baby to home Follow up 1-2 weeks with myself and will do bleeding and clotting disorder testing Come to ER with filling pads, large clots, pain, or fever loss kit given
[2021-09-02 07:39] VITALS: BP 98/54; PULSE 58
[2021-09-02] MEDS ORDERED: Ferrous Sulfate 325 MG Tab PO SCH (08:00)
== END 2021-09-02 09:39 | disposition home or self-care (01) | DRG 807 ==
LOC: JP.OB 18:49 → JP.OBCHECK 18:49 → JP.OB 19:48 → OBSVTOIN 20:20
PROVIDERS: ADMIT Advanced Practice Midwife; ATTEND Advanced Practice Midwife
PROC: 10E0XZZ Delivery of Products of Conception, External Approach (ICD-10-PCS; principal; 2021-09-01)
DX: O45.92 Premature separation of placenta, unspecified, second trimester (principal); Z37.1 Single stillbirth; Z3A.21 21 weeks gestation of pregnancy; Z20.822 Contact with and (suspected) exposure to COVID-19
CPT/HCPCS: 36415; 80305-QW; 81001; 85025; 85027; 86850; 86900; 86901; 86920; 86922; 99211; A9270-GY; J2590; J7120; U0002